=== PATIENT | male | born 1990 | race African-American/Black ===

== ENCOUNTER 2017-02-13 17:45 | Emergency (ER) | payer OTHER ==
[2017-02-13] MEDS ORDERED: OXYCODONE-ACETAMINOPHEN 5-325 MG TABLET ONE (19:56)
--- NOTE | 2017-02-13 20:27 | ER Document Report ---
HPI - HPI Patient complains to provider of: headache Onset: Yesterday Onset/Duration: Gradual Quality of pain: Dull Severity: Moderate Associated Symptoms: None Exacerbated by: Denies Relieved by: Denies Similar symptoms previously: No Recently seen / treated by doctor: No Notes: Patient is a 26-year-old male with no medical problems. Patient developed a headache yesterday, it was gradual in onset and is persisted throughout the day. Patient took ibuprofen without relief. It is not his worst headache ever. He has no neck pain or fever. No trauma. Patient denies any focal neurologic complaints. Patient was able to drive himself to the emergency department without difficulty. - ROS ROS below otherwise negative: Yes - CONSTITUTIONAL Constitutional: DENIES: Fever, Chills - NEURO Neurology: REPORTS: Headache. DENIES: Vision blurred - GASTROINTESTINAL Gastrointestinal: DENIES: Nausea, Patient vomiting Past Medical History - Social History Smoking Status: Never Smoker Family History: None Vertical Provider Document - CONSTITUTIONAL Agree With Documented VS: Yes Exam Limitations: No Limitations General Appearance: WD/WN, No Apparent Distress - HEENT HEENT: Atraumatic, Normocephalic, PERRLA - NECK Neck: Normal Inspection, Supple - RESPIRATORY Respiratory: Breath Sounds Normal - CARDIOVASCULAR Cardiovascular: Regular Rate - GI/ABDOMEN Gastrointestinal: Abdomen Soft, Abdomen Non-Tender - MUSCULOSKELETAL/EXTREMETIES Musculoskeletal/Extremeties: MAEW, FROM, Non-Tender - NEURO Level of Consciousness: Awake, Alert, Appropriate Motor/Sensory: No Motor Deficit, No Sensory Deficit Notes: Cranial nerves intact Course - Re-evaluation Re-evalutation: 02/13/17 20:26 CT negative per radiologist. There is no indication for lumbar puncture at this time. Patient feels better after p.o. Percocet. Discussed need for primary care follow-up. - Diagnostic Test Radiology reviewed: Reports reviewed Discharge - Discharge Clinical Impression: Headache Condition: Good Disposition: HOME, SELF-CARE Instructions: Headache ([facility]) Additional Instructions: Follow-up with your primary care doctor. Return to the emergency department if worse or for any other problems. Prescriptions: Tramadol HCl 50 mg PO QID PRN #24 tablet PRN Reason: pain
--- NOTE | 2017-02-13 21:03 | RADIOLOGY REPORT (SQ) ---
EXAM DESCRIPTION: CT HEAD WITHOUT COMPLETED DATE/TIME: 02/13/2017 8:35 pm REASON FOR STUDY: MULLEN COMPARISON: None. TECHNIQUE: Axial images acquired through the brain without intravenous contrast. Images reviewed wi th bone, brain and subdural windows. Images stored on PACS. All CT scanners at this facility use dose modulation, iterative reconstruction, and/or weight based d osing when appropriate to reduce radiation dose to as low as reasonably achievable (ALARA). [facility]: Dose Right [facility]: CareDose [facility]: Dose Right [facility]: Teradose 4D [facility]: Smart CoPromote RADIATION DOSE: Up-to-date CT equipment and radiation dose reduction techniques were employed. CTDIv ol: 64.6 mGy. DLP: 1163 mGy-cm. mGy. LIMITATIONS: None. FINDINGS: VENTRICLES: Normal size and contour. CEREBRUM: No masses. No hemorrhage. No midline shift. No evidence for acute infarction. Normal gra y/white matter differentiation. No areas of low density in the white matter. CEREBELLUM: No masses. No hemorrhage. No alteration of density. No evidence for acute infarction. EXTRAAXIAL SPACES: No fluid collections. No masses. ORBITS AND GLOBE: No intra- or extraconal masses. Normal contour of globe without masses. CALVARIUM: No fracture. PARANASAL SINUSES: No fluid or mucosal thickening. SOFT TISSUES: No mass or hematoma. OTHER: No other significant finding. IMPRESSION: No acute intracranial findings. COMMENT: Quality ID # [id number]: Final reports with documentation of one or more dose reduction techniques (e.g., Automated exposure control, adjustment of the mA and/or kV according to patient size, use of iterative reconstruction technique) TECHNICAL DOCUMENTATION: JOB ID: [id number] [employer]- All Rights Reserved
[2017-02-13 21:12] VITALS: BP 124/76
== END 2017-02-13 21:10 | disposition home or self-care (01) ==
LOC: ER 17:45
DX: R51 Headache (principal)
CPT/HCPCS: 70450; 99284

== ENCOUNTER 2018-04-28 16:10 | Emergency (ER) | payer SELFPAY ==
[2018-04-28] MEDS ORDERED: KETOROLAC TROMETHAMINE 60 MG/2 ML SDV IM ONE (16:45)
[2018-04-28] MEDS ORDERED: HYDROCODONE/ACETAMINOPHEN 5-325 MG TABLET PO ONE (16:45)
--- NOTE | 2018-04-28 16:45 | ER Document Report ---
ED Medical Screen (RME) - General Chief Complaint: Rectal Pain Stated Complaint: ANAL PAIN Time Seen by Provider: 04/28/18 16:43 Notes: 27 years old male presents today with perianal pain with possible abscess. The last few days. On examination at 9:00 perirectal region erythema swelling and tenderness noted- perineal abscess TRAVEL OUTSIDE OF THE [place] IN LAST 30 DAYS: No - Related Data Allergies/Adverse Reactions: No Known Allergies Allergy (Verified 04/28/18 16:23)
[2018-04-28] MEDS ORDERED: SULFAMETHOXAZOLE/TRIMETHOPRIM 800-160 MG TABLET PO ONE (19:11)
--- NOTE | 2018-04-28 19:11 | ER Document Report ---
ED General - General Chief Complaint: Rectal Pain Stated Complaint: ANAL PAIN Time Seen by Provider: 04/28/18 16:43 Notes: Patient is a 27-year-old male without chronic medical problems who presents with complaints of 3 days of increasing pain around his anus. The patient describes it as a severe, throbbing, constant pain worse by attempting to have bowel movements or sitting down. He states that he has had hemorrhoids in the past and that this does feel somewhat similar. Does admit that he has been straining heavily to have bowel movements and that this is quite normal for him. He has been using [id number] hemorrhoid cream without any relief. He does not have a primary care physician. He denies fever or constitutional symptoms. No abdominal pain, fever, constitutional symptoms or vomiting. TRAVEL OUTSIDE OF THE [place] IN LAST 30 DAYS: No - Related Data Allergies/Adverse Reactions: No Known Allergies Allergy (Verified 04/28/18 16:23) Past Medical History - General Information source: Patient - Social History Smoking Status: Current Every Day Smoker Frequency of alcohol use: None Drug Abuse: None Lives with: Spouse/Significant other Family History: Reviewed & Not Pertinent Patient has suicidal ideation: No Patient has homicidal ideation: No Renal/ Medical History: Denies: Hx Peritoneal Dialysis Review of Systems - Review of Systems Notes: Constitutional: Negative for fever. HENT: Negative for sore throat. Eyes: Negative for visual changes. Cardiovascular: Negative for chest pain. Respiratory: Negative for shortness of breath. Gastrointestinal: Negative for abdominal pain, vomiting or diarrhea. Positive for rectal pain Genitourinary: Negative for dysuria. Musculoskeletal: Negative for back pain. Skin: Positive for perirectal abscess Neurological: Negative for headaches, weakness or numbness. 10 point ROS negative except as marked above and in HPI. Physical Exam - Vital signs Vitals: Temp Pulse Resp BP Pulse Ox 98.1 F 71 18 123/72 98 04/28/18 16:48 04/28/18 16:48 04/28/18 16:48 04/28/18 16:48 04/28/18 16:48 Interpretation: Normal Notes: PHYSICAL EXAMINATION: GENERAL: Appears moderately uncomfortable but in no acute distress HEAD: Atraumatic, normocephalic. EYES: Pupils equal round and reactive to light, extraocular movements intact, sclera anicteric, conjunctiva are normal. ENT: nares patent, oropharynx clear without exudates. Moist mucous membranes. NECK: Normal range of motion, supple without lymphadenopathy LUNGS: Breath sounds clear to auscultation bilaterally and equal. No wheezes rales or rhonchi. HEART: Regular rate and rhythm without murmurs ABDOMEN: Soft, nontender, normoactive bowel sounds. No guarding, no rebound. No masses appreciated. Rectal: There are 2 small external hemorrhoids. There is a approximate 1 x 0.5 cm perianal abscess to the 10 o'clock position. Digital rectal exam without any bulging or evidence of tracking into the rectum or a rectal abscess. EXTREMITIES: Normal range of motion, no pitting or edema. No cyanosis. NEUROLOGICAL: No focal neurological deficits. Moves all extremities spontaneously and on command. PSYCH: Normal mood, normal affect. SKIN: Warm, Dry, normal turgor, no rashes or lesions noted. Course - Re-evaluation Re-evalutation: 04/28/18 19:07 Patient presents with 2 distinct complaints. First he does have several small external rectal hemorrhoids likely secondary to constipation. He has been advised on a fibrous diet, stool softeners, using wet wipes for cleaning. The patient also has a perianal abscess at approximately the 10 o'clock position. Of note there is no fistulization into the rectum. Digital rectal exam without any bulging. The area was anesthetized and drained without any complication and subtotally packed with iodoform gauze. The patient has been tried started on trimethoprim sulfamethoxazole. Tolerated the procedure well. No history of Crohn's disease and I do not clinically suspect a rectal or anal abscess based on exam. At this time will discharge with return precautions and follow-up recommendations. Verbal discharge instructions given a the bedside and opportunity for questions given. Medication warnings reviewed. Patient is in agreement with this plan and has verbalized understanding of return precautions and the need for primary care follow-up in the next 24-72 hours. - Vital Signs Vital signs: Temp Pulse Resp BP Pulse Ox 98.1 F 71 18 123/72 98 04/28/18 16:48 04/28/18 16:48 04/28/18 16:48 04/28/18 16:48 04/28/18 16:48 Procedures - Incision and Drainage Buttock Type: Complex Anesthetic type: 1% Lidocaine mL's of anesthetic: 5 Blade size: 11 I&D procedure: Betadine prep applied, Iodoform packing placed, Sterile dressing applied Incision Method: Incision made by scalpel Amount/type of drainage: 5 cc purulent drianage Discharge - Discharge Clinical Impression: Perianal abscess, External hemorrhoids Condition: Good Disposition: HOME, SELF-CARE Additional Instructions: You were seen for an abscess that required drainage. Please clean this area with soap and water twice daily and apply a topical antibiotic. Please clean the area with soap and water after any bowel movement. I recommend that you soak in a warm tub for 20 minutes twice daily. Dress the area after each cleaning. Please return if you develop fever, vomiting, the pain at the site worsens, you notice spreading redness from the area, or you have any other symptoms that are concerning to you. The area should heal well within the next 5-7 days. Please also take the antibiotics as prescribed. For your pain: Take ibuprofen 600 mg and acetaminophen 1000 mg every 6 hours together as needed for pain. You were seen today for hemorrhoids. The best treatment is to avoid straining while having bowel moments, avoiding heavy lifting, or any other activity that causes you to bear down forcefully. You need to make sure that your stools are soft and should start taking Docusate 200mg in the morning and at night until your stools are very soft and you can have a bowel movement without any straining. You can also soak in warm water, apply topical hemorrhoid cream that can be purchased at the store. Please follow-up with your primary doctor. Return if you begin to have persistent bleeding, worsening pain, abdominal pain , fever >101, or any other symptoms that are concerning to you. Prescriptions: Sulfamethoxazole/Trimethoprim [Bactrim Ds Tablet] 2 tab PO BID #28 tablet
[2018-04-28 19:28] VITALS: BP 107/58
== END 2018-04-28 19:29 | disposition home or self-care (01) ==
LOC: ER 16:10
DX: K61.0 Anal abscess (principal); K64.4 Residual hemorrhoidal skin tags; F17.200 Nicotine dependence, unspecified, uncomplicated
CPT/HCPCS: 99283; 96372; 46050; J1885